=== PATIENT | male | born 1960 | race Caucasian/White ===

== ENCOUNTER 2017-04-16 19:20 | Inpatient (IN) ==
[2017-04-16] MEDS ORDERED: 0.9 % Sodium Chloride 1,000 ML IVC ONE (19:26)
[2017-04-16 20:15] LABS: Basophils # 0.1 K/mcL (0.0-0.2); Eosinophils # 0.3 K/mcL (0.0-0.6); Eosinophils % 2.6 %; Hematocrit 53.3 % (37.5-50.1); Hemoglobin 18.3 g/dL (12.9-16.9); Immature Granulocytes % 0.9 % (0-4); Lymphocytes % 24.3 %; Mean Corpuscular HGB Conc 34.3 g/dL (31.6-35.5); Mean Corpuscular Hemoglobin 32.7 pg (28.0-33.3); Mean Corpuscular Volume 95.2 fL (83.0-100.0); Mean Platelet Volume 11.4 fL (9.4-12.4); Monocytes # 0.8 K/mcL (0.0-1.3); Monocytes % 6.7 %; Platelet Count 176 K/mcL (140-400); Red Cell Distribution Width 12.4 % (11.5-14.5); Segmented Neutrophils % 64.5 %
[2017-04-16 20:24] LABS: INR 1.1; Prothrombin Time 12.4 Seconds (9.4-12.1)
[2017-04-16 20:26] LABS: BUN/Creatinine Ratio 13 (6-26); Blood Urea Nitrogen 12 mg/dL (8-26); Calcium 9.2 mg/dL (8.6-10.8); Carbon Dioxide 21 mEq/L (19-29); Chloride 109 mEq/L (98-109); Glucose 142 mg/dL (70-99); Magnesium 2.1 mg/dL (1.6-2.6); Osmolality,Calculated 296 (280-300); Potassium 4.5 mEq/L (3.5-4.5); Sodium 142 mEq/L (136-145); eGFR For African Americans > 60 (> 60); eGFR For Non-African Americans > 60 (> 60)
[2017-04-16 20:27] LABS: Activated Partial Thrombo Time 36.3 Seconds (26.0-36.0)
[2017-04-16 20:37] LABS: Bilirubin,Urine Negative (Negative); Blood,Urine Negative (Negative); Clarity,Urine Clear (Clear); Color,Urine Yellow (Yellow); Glucose,Urine (UA) Normal (Normal); Ketones,Urine Negative (Negative); Leukocyte Esterase,Urine Trace (Negative); Nitrite,Urine Negative (Negative); PH,Urine 5.5 pH Units (5.0-8.0); Protein,Urine Negative (Neg-Trace); Specific Gravity,Urine 1.025 (1.010-1.025); Urobilinogen,Urine Normal (Normal)
[2017-04-16 20:42] LABS: Amphetamine Screen,Urine Negative ng/mL (Cutoff=1000); Barbiturate Screen,Urine Negative ng/mL (Cutoff=200); Benzodiazepines Screen,Urine Negative ng/mL (Cutoff=200); Cannabinoid Screen,Urine Negative ng/mL (Cutoff = 50); Cocaine Screen,Urine Negative ng/mL (Cutoff= 300); Opiate Screen,Urine Negative ng/mL (Cutoff=300); Phencyclidine Screen,Urine Negative ng/mL (Cutoff=25)
[2017-04-16 20:47] LABS: Thyroid Stimulating Hormone 1.229 mcIU/mL (0.350-4.840)
[2017-04-16 20:55] LABS: RBC,Urine 0-3 per hpf (0-3)
--- NOTE | 2017-04-16 21:50 | Emergency Department Note ---
Disposition Clinical Impression: Atrial flutter Disposition: Admitted As Inpatient Condition: Good Time of Disposition: 22:01 Arrhythmia/Palpitations HPI - General Chief Complaint: ED Arrhythmia/Palpitations Stated Complaint: AFIB converted Time Seen by Provider: 04/16/17 19:25 Source: patient, EMS Mode of arrival: EMS Limitations: no limitations Nursing Notes Reviewed: Yes Vital Signs Reviewed: Yes - History of Present Illness HPI Narrative: Patient presenting as a transfer from the [place] urgent care with a flutter, spontaneously converted. No previous history. Patient presented to the urgent care for nausea, got diaphoretic while he was there. EKG showed atrial flutter. Was about to be given Cardizem when he spontaneously converted. he never felt anything like this before, but he feels fine now. - Related Data Allergies Allergy/AdvReac Type Severity Reaction Status Date / Time No Known Allergies Allergy Verified 04/16/17 20:23 All systems ED: reviewed and negative except as stated. Constitutional: Denies: fever Cardiovascular: Reports: palpitations. Denies: chest pain Respiratory: Reports: dyspnea Gastrointestinal: Reports: nausea Neurological: Denies: headache Past Medical History - Past Medical History Attestation: Yes The following information was validated with the patient. Source: patient Medical history: Reports: GERD Psychiatric history: Reports: anxiety - Social History Smoking Status: Current some day smoker Smokeless Tobacco Status: No Alcohol use: Reports: none Drug use: Reports: marijuana Physical Exam - General Limitations: no limitations General appearance: alert, in no apparent distress - Head Head exam: atraumatic, normocephalic, normal inspection - Eye Eye exam: Present: normal appearance, PERRL, EOMI, conjunctival injection - Neck Neck exam: Present: normal inspection, full ROM, trachea midline - Chest Chest inspection: Present: normal inspection, symmetric chest wall rise - Respiratory Respiratory exam: Present: normal lung sounds bilaterally - Cardiovascular Cardiovascular exam: Present: regular rate, normal rhythm, normal heart sounds - Abdominal Exam Abdominal exam: Present: soft, Non-Tender. Absent: tenderness, distention, guarding, rebound, rigidity - Extremities Exam Extremities exam: Present: normal inspection, full ROM. Absent: tenderness, pedal edema - Neurological Exam Neurological exam: Present: alert, oriented X3 - Psychiatric Psychiatric exam: Present: normal affect, normal mood - Skin Skin exam: Present: warm, dry, intact, normal color Course Course Narrative: Patient sent over from the [place] for A. fib versus atrial flutter, spontaneously converted. He presented with nausea and diaphoresis and self resolved. No symptoms since. No previous history. No history of hypertension, diabetes or vascular disease or CHF. Workup here is normal. Spoke with on-call isotope hydrologist, who did recommend admission. Since the [place] does not have cardiology. Although, his chads-vasc score is low Vital Signs Temperature 98.6 F 04/16/17 19:22 Pulse Rate 91 04/16/17 19:22 Respiratory Rate 16 04/16/17 19:22 Blood Pressure 117/102 04/16/17 19:22 O2 Sat by Pulse Oximetry 94 04/16/17 19:22 Temperature 98.6 F 04/16/17 19:22 Pulse Rate 81 04/16/17 21:24 Respiratory Rate 14 04/16/17 21:24 Blood Pressure 117/92 04/16/17 21:24 O2 Sat by Pulse Oximetry 92 04/16/17 21:24 Oxygen Delivery Oxygen Delivery Room Air Arrhythmia/Palpitations - Medical Records Medical records reviewed: Yes I reviewed the patient's medical records. - Lab Data Lab results reviewed: Yes I reviewed the patient's lab results. Result diagrams: 04/16/17 20:05 04/16/17 20:05 Lab Results 04/16/17 04/16/17 04/16/17 Range/Units 20:05 20:05 20:05 WBC 12.4 H (4.3-11.1) K/mcL RBC 5.60 H (4.19-5.50) M/mcL Hgb 18.3 H (12.9-16.9) g/dL Hct 53.3 H (37.5-50.1) % MCV 95.2 (83.0-100.0) fL MCH 32.7 (28.0-33.3) pg MCHC 34.3 (31.6-35.5) g/dL RDW 12.4 (11.5-14.5) % Plt Count 176 (140-400) K/mcL MPV 11.4 (9.4-12.4) fL Immature Gran % 0.9 (0-4) % Seg Neutrophils % 64.5 % Lymphocytes % 24.3 % Monocytes % 6.7 % Eosinophils % 2.6 % Basophils % 1.0 % Neutrophils # 8.0 (1.6-8.9) K/mcL Lymphocytes # 3.0 (0.6-4.6) K/mcL Monocytes # 0.8 (0.0-1.3) K/mcL Eosinophils # 0.3 (0.0-0.6) K/mcL Basophils # 0.1 (0.0-0.2) K/mcL PT 12.4 H (9.4-12.1) Seconds INR 1.1 APTT 36.3 H (26.0-36.0) Seconds Sodium 142 (136-145) mEq/L Potassium 4.5 (3.5-4.5) mEq/L Chloride 109 (98-109) mEq/L Carbon Dioxide 21 (19-29) mEq/L BUN 12 (8-26) mg/dL Creatinine 0.94 (0.72-1.25) mg/dL Est GFR ( Amer) > 60 (> 60) Est GFR (Non-Af Amer) > 60 (> 60) BUN/Creatinine Ratio 13 (6-26) Glucose 142 H (70-99) mg/dL Calculated Osmolality 296 (280-300) Calcium 9.2 (8.6-10.8) mg/dL Magnesium 2.1 (1.6-2.6) mg/dL Troponin I (0-0.03) ng/mL TSH 1.229 (0.350-4.840) mcIU/mL Urine Color (Yellow) Urine Clarity (Clear) Urine pH (5.0-8.0) pH Units Ur Specific [place] (1.010-1.025) Urine Protein (Neg-Trace) mg/dL Urine Glucose (UA) (Normal) mg/dL Urine Ketones (Negative) mg/dL Urine Blood (Negative) Urine Nitrite (Negative) Urine Bilirubin (Negative) Urine Urobilinogen (Normal) mg/dL Ur Leukocyte Esterase (Negative) Urine Microscopic RBC (0-3) per hpf Ur Culture Indicated? (NO) Urine Opiates Screen (Cfdbdl=263) ng/mL Ur Barbiturates Screen (Carnhb=490) ng/mL Ur Phencyclidine Scrn (Cutoff=25) ng/mL Ur Amphetamines Screen (Carazk=1641) ng/mL U Benzodiazepines Scrn (Axgkzs=874) ng/mL Urine Cocaine Screen (Cutoff= 300) ng/mL U Marijuana (THC) Screen (Cutoff = 50) ng/mL Ethyl Alcohol (0-10) mg/dL 04/16/17 04/16/17 04/16/17 Range/Units 20:05 20:05 20:28 WBC (4.3-11.1) K/mcL RBC (4.19-5.50) M/mcL Hgb (12.9-16.9) g/dL Hct (37.5-50.1) % MCV (83.0-100.0) fL MCH (28.0-33.3) pg MCHC (31.6-35.5) g/dL RDW (11.5-14.5) % Plt Count (140-400) K/mcL MPV (9.4-12.4) fL Immature Gran % (0-4) % Seg Neutrophils % % Lymphocytes % % Monocytes % % Eosinophils % % Basophils % % Neutrophils # (1.6-8.9) K/mcL Lymphocytes # (0.6-4.6) K/mcL Monocytes # (0.0-1.3) K/mcL Eosinophils # (0.0-0.6) K/mcL Basophils # (0.0-0.2) K/mcL PT (9.4-12.1) Seconds INR APTT (26.0-36.0) Seconds Sodium (136-145) mEq/L Potassium (3.5-4.5) mEq/L Chloride (98-109) mEq/L Carbon Dioxide (19-29) mEq/L BUN (8-26) mg/dL Creatinine (0.72-1.25) mg/dL Est GFR ( Amer) (> 60) Est GFR (Non-Af Amer) (> 60) BUN/Creatinine Ratio (6-26) Glucose (70-99) mg/dL Calculated Osmolality (280-300) Calcium (8.6-10.8) mg/dL Magnesium (1.6-2.6) mg/dL Troponin I 0.00 (0-0.03) ng/mL TSH (0.350-4.840) mcIU/mL Urine Color Yellow (Yellow) Urine Clarity Clear (Clear) Urine pH 5.5 (5.0-8.0) pH Units Ur Specific [place] 1.025 (1.010-1.025) Urine Protein Negative (Neg-Trace) mg/dL Urine Glucose (UA) Normal (Normal) mg/dL Urine Ketones Negative (Negative) mg/dL Urine Blood Negative (Negative) Urine Nitrite Negative (Negative) Urine Bilirubin Negative (Negative) Urine Urobilinogen Normal (Normal) mg/dL Ur Leukocyte Esterase Trace H (Negative) Urine Microscopic RBC 0-3 (0-3) per hpf Ur Culture Indicated? YES A (NO) Urine Opiates Screen (Mkjfde=758) ng/mL Ur Barbiturates Screen (Ushilz=509) ng/mL Ur Phencyclidine Scrn (Cutoff=25) ng/mL Ur Amphetamines Screen (Fonymj=4257) ng/mL U Benzodiazepines Scrn (Tjxbhw=547) ng/mL Urine Cocaine Screen (Cutoff= 300) ng/mL U Marijuana (THC) Screen (Cutoff = 50) ng/mL Ethyl Alcohol < 10 (0-10) mg/dL 04/16/ Range/Units 20:28 WBC (4.3-11.1) K/mcL RBC (4.19-5.50) M/mcL Hgb (12.9-16.9) g/dL Hct (37.5-50.1) % MCV (83.0-100.0) fL MCH (28.0-33.3) pg MCHC (31.6-35.5) g/dL RDW (11.5-14.5) % Plt Count (140-400) K/mcL MPV (9.4-12.4) fL Immature Gran % (0-4) % Seg Neutrophils % % Lymphocytes % % Monocytes % % Eosinophils % % Basophils % % Neutrophils # (1.6-8.9) K/mcL Lymphocytes # (0.6-4.6) K/mcL Monocytes # (0.0-1.3) K/mcL Eosinophils # (0.0-0.6) K/mcL Basophils # (0.0-0.2) K/mcL PT (9.4-12.1) Seconds INR APTT (26.0-36.0) Seconds Sodium (136-145) mEq/L Potassium (3.5-4.5) mEq/L Chloride (98-109) mEq/L Carbon Dioxide (19-29) mEq/L BUN (8-26) mg/dL Creatinine (0.72-1.25) mg/dL Est GFR ( Amer) (> 60) Est GFR (Non-Af Amer) (> 60) BUN/Creatinine Ratio (6-26) Glucose (70-99) mg/dL Calculated Osmolality (280-300) Calcium (8.6-10.8) mg/dL Magnesium (1.6-2.6) mg/dL Troponin I (0-0.03) ng/mL TSH (0.350-4.840) mcIU/mL Urine Color (Yellow) Urine Clarity (Clear) Urine pH (5.0-8.0) pH Units Ur Specific [place] (1.010-1.025) Urine Protein (Neg-Trace) mg/dL Urine Glucose (UA) (Normal) mg/dL Urine Ketones (Negative) mg/dL Urine Blood (Negative) Urine Nitrite (Negative) Urine Bilirubin (Negative) Urine Urobilinogen (Normal) mg/dL Ur Leukocyte Esterase (Negative) Urine Microscopic RBC (0-3) per hpf Ur Culture Indicated? (NO) Urine Opiates Screen Negative (Qqwueo=414) ng/mL Ur Barbiturates Screen Negative (Ovqeeq=222) ng/mL Ur Phencyclidine Scrn Negative (Cutoff=25) ng/mL Ur Amphetamines Screen Negative (Wxglke=0631) ng/mL U Benzodiazepines Scrn Negative (Efpyrk=386) ng/mL Urine Cocaine Screen Negative (Cutoff= 300) ng/mL U Marijuana (THC) Screen Negative (Cutoff = 50) ng/mL Ethyl Alcohol (0-10) mg/dL - Radiology Data Radiology results reviewed: Yes I reviewed the patient's radiology results. Chest X-Ray 04/16/17 19:27 IMPRESSION: No acute process. D/ / Moris Chan MD / Moris Chan MD Interpreting Provider: Moris Chan MD - EKG Data EKG attestation: Yes I reviewed and interpreted this EKG. EKG results narrative: Sinus rhythm, rate 82, TX interval 146, QRS 93, QTc 389, left axis deviation, no acute ischemic changes Initial EKG showed a rate of 153 with atrial flutter versus 2-1. S.B.A.R. - S.Elsa.Martinez Situation: Demographics, MOA Background: Presenting Complaint, Relevant PMH, Meds, & Allergies Assessment: Vital Signs, Course and respsone to treatment, Exam Concerns, Patient/Family Expectation, Pertinant Lab Results, Outstanding Labs Recommendation: Barrier(s) to disposition, Recommendation based on pending studies, treatments, or consults Radha Report Given to: Dr. Rishabh Garcia Repor Time: 22:01 Attestation Statement - Attestation Attestation: I examined this patient and my medical decision-making was reviewed with the Resident Physician, Dr. Morales. I agree with the documented findings, disposition and treatment plan as described except to the extent set forth below. Patient is 57-year-old white male who is transferred from the [facility] for evaluation of atrial flutter which spontaneously converted prior to arrival to the emergency department. Patient states he had just eaten and started to feel short of breath and nauseated and got hot and sweaty and went to the [place] clinic for evaluation of his symptoms. Patient was found to be in atrial flutter with heart rate in the 150s and 160s and this was captured by EKG which was sent with the patient. He had no prior history of A. fib or atrial flutter. No prior history of CHF and coronary artery disease or IA. Patient was about to receive Cardizem prior to transport and he spontaneously converted back to normal sinus rhythm. At the time that this occurred patient's symptoms resolved. Patient has been asymptomatic since that time. Patient is resting comfortably on arrival to the emergency department with stable vital signs and denies any chest pain pressure or heaviness, no current shortness of breath and diaphoresis no nausea vomiting no abdominal pain or flank pain I agree with patient's physical exam findings as documented. EKG here shows normal sinus rhythm with no acute ischemic changes. Chest x-ray is unremarkable. Patient's lab evaluation including alcohol level and urine drug screen is unremarkable. We discussed the case with isotope hydrologist child welfare consultant who is Dr. Villagomez in regards to whether to bring the patient in for further evaluation or schedule as an outpatient. He was concerned that his workup would be delayed due to having to wait for the patient have approval through the [facility] for a lot of this testing and they do not have cardiology they are so he recommended admission for further evaluation and management. Patient was accepted by the hospitalist service with a consult to cardiology placed in the ED.
[2017-04-16] MEDS ORDERED: 0.9 % Sodium Chloride 1,000 ML IVC SCH (23:45)
[2017-04-16] MEDS ORDERED: Naloxone 0.4 MG/ML INJ IVP PRN (23:54)
[2017-04-16] MEDS ORDERED: cloNIDine HCl 0.1 MG TABLET PO PRN (23:58)
[2017-04-16] MEDS ORDERED: Baclofen 10 MG TABLET PO PRN (23:58)
[2017-04-16] MEDS ORDERED: hydrOXYzine pamoate 25 MG CAPSULE PO PRN (23:58)
[2017-04-16] MEDS ORDERED: NALOXONE HCL 4 MG NS PRN (23:58)
[2017-04-17] MEDS: *HR* Heparin 5,000 UNIT/ML VIAL SQ SCH ×2 (00:27→09:09)
--- NOTE | 2017-04-17 01:30 | Internal Med History&Physical ---
Date of Encounter: 04/17/17 Time of Encounter: 23:00 Assessment and Plan (1) Atrial flutter Current visit: Yes Status: Acute Patient presented to the hospital with the acute onset of atrial flutter. Heart rate was in the 150s to 160s. -Patient has no known cardiac history, and has chads-vasc score of 0. I will signs have been stable since admission. Patient's heart rate is 81. -Obtain echocardiogram. -Start on aspirin 325 mg daily. -Obtain serial troponins, TSH, free T4, d-dimer. -Telemetry. Monitor vital signs closely. -Consult to cardiology Qualifiers: Qualified Code(s): I48.92 - Unspecified atrial flutter (2) DVT prophylaxis Current visit: Yes Status: Acute Heparin 5000 subcutaneous 8 hours. Internal Medicine - H&P: HPI Chief complaint: Atrial flutter Admitted From: Hospital to Hospital Transfer History of present illness: Mr. Mckenzie is a 57 year old male who was transferred from the [facility] for the evaluation of atrial flutter. Patient states that he had just eaten and started feel short of breath, became nauseated, and became sweaty and went to the [place] clinic for evaluation. At the [place] clinic, EKG was performed, revealing atrial flutter with a heart rate in the 150s and 160s. Patient has had no prior history of atrial fibrillation or atrial flutter. He has no known history of congestive heart failure or coronary artery disease. When he was at the clinic, patient was about to receive Cardizem prior to transport. It was at this time and he spontaneously converted back to normal sinus rhythm. Patient's symptoms are completely resolved at this time. Vital signs are within normal limits since admission. He has been asymptomatic since his arrival to the hospital. He denies having any chest pain, palpitations, diaphoresis, nausea, vomiting, fever, chills, or shortness of breath. Patient denies ever having anything like this before. At time of examination, patient is in no apparent distress and has no complaints. Past Med Surg Social Fam HX - Past Medical History Medical history: GERD, hyperlipidemia Psychiatric history: anxiety - Past Surgical History Surgical History: herniorrhaphy - Social History Smoking Status: Current some day smoker Packs per day: 1/2 Smokeless Tobacco Status: No Alcohol use: none Drug use: none - Family History Mother Living Status: Still Living Hx Family Cancer: Yes Internal Medicine - H&P: Meds Atomoxetine HCl [Strattera] 80 mg PO DAILY 04/16/17 [History] Atorvastatin [Lipitor] 10 mg PO HS 04/16/17 [History] Baclofen [Lioresal] 10 mg PO TID PRN 04/16/17 [History] Ergocalciferol (VITAMIN D2) [Vitamin D] 800 unit PO DAILY 04/16/17 [History] Fluticasone Propionate Nasal [Flonase] 50 mcg NS HS 04/16/17 [History] Gabapentin [Neurontin] 800 mg PO 0700,1400,2100 04/16/17 [History] Hydrocortisone 1% CREAM [Cortaid] 1 appl TP TID PRN 04/16/17 [History] Montelukast [Singulair] 10 mg PO DAILY 04/16/17 [History] Multivitamin [One Daily Multivitamin] 1 each PO DAILY 04/16/17 [History] Naloxone HCl [Narcan] 4 mg NS AD PRN 04/16/17 [History] Naltrexone HCl [Revia] 50 mg PO DAILY 04/16/17 [History] Omeprazole [PriLOSEC] 20 mg PO DAILY PRN 04/16/17 [History] Propylene Glycol/Peg 400 [Systane 0.3-0.4% Eye Drops] 1 drop BOTH EYES QID 04/16 [History] cloNIDine HCl [CloNIDine HCl] 0.1 mg PO Q4H PRN 04/16/17 [History] hydrOXYzine HCl [Hydroxyzine HCl] 25 mg PO HS PRN 04/16/17 [History] 3 Allergy/AdvReac Type Severity Reaction Status Date / Time No Known Allergies Allergy Verified 04/16/17 20:23 All Systems PM: A 10-system review of systems was performed and is negative for pertinent findings except as documented above in the HPI. - Constitutional Constitutional: no chills, no fever(s), no night sweats - EENT Eyes: no change in vision - Cardiovascular Cardiovascular ROS IM: no chest pain, no diaphoresis, no dyspnea, no lightheadedness, no palpitations, no syncope - Respiratory Respiratory: no cough, no dyspnea, no wheezing, no excessive phlegm production - Gastrointestinal Gastrointestinal: no abdominal pain, no diarrhea, no hematemesis, no hematochezia, no melena, no nausea, no vomiting - Neurological Neurological ROS: no confusion, no convulsions, no focal weakness, no numbness, no tingling, no tremor(s) - Hematologic/Lymphatic Hematologic/Lymphatic: no easy bruising - Constitutional Vitals: Temp Pulse Resp BP Pulse Ox 98.3 F 73 16 116/80 94 04/16/17 23:03 04/16/17 23:03 04/16/17 23:03 04/16/17 23:03 04/16/17 23:03 General appearance: Present: pleasant, no acute distress, answers questions appropriately - Head Head exam: Present: atraumatic, normocephalic - Neck Neck exam general surgery: Present: supple, trachea midline. Absent: lymphadenopathy - Respiratory Respiratory exam: Present: CTAB. Absent: accessory muscle use, rales, rhonchi, wheezes - Cardiovascular Cardiovascular exam: Present: RRR, +S1, +S2. Absent: diastolic murmur, gallop, rubs, systolic murmur - GI/Abdominal GI/Abdominal exam: Present: normal bowel sounds, soft, no peritoneal signs. Absent: distended, tenderness - Extremities Exam Extremities exam: Present: warm, radial pulses palpable and symmetrical. Absent : calf tenderness, cyanotic, pedal edema - Skin Skin exam: Present: dry, intact Internal Med - H&P Results - Labs CBC & Chem 7: 04/16/17 20:05 04/16/17 20:05
--- NOTE | 2017-04-17 01:36 | Event Note ---
Date of Encounter: 04/17/17 Time of Encounter: 01:35 Patient seen and examined with senior medical technologist. Nuance of atrial flutter. Currently normal sinus rhythm. Chadvasc score is 0. We will get echocardiogram. Cardiology consultation. We will keep him on aspirin 325 mg daily for now.
[2017-04-17 01:50] LABS: Basophils # 0.1 K/mcL (0.0-0.2); Basophils % 1.1 %; Eosinophils # 0.3 K/mcL (0.0-0.6); Hematocrit 48.4 % (37.5-50.1); Immature Granulocytes % 0.9 % (0-4); Immature Platelets 6.6 % (1.1-6.1); Lymphocytes # 3.2 K/mcL (0.6-4.6); Lymphocytes % 33.2 %; Mean Corpuscular HGB Conc 34.3 g/dL (31.6-35.5); Mean Corpuscular Hemoglobin 32.7 pg (28.0-33.3); Mean Corpuscular Volume 95.5 fL (83.0-100.0); Mean Platelet Volume 11.4 fL (9.4-12.4); Monocytes # 0.9 K/mcL (0.0-1.3); Neutrophils # 5.2 K/mcL (1.6-8.9); Platelet Count 153 K/mcL (140-400); Red Blood Count 5.07 M/mcL (4.19-5.50); Red Cell Distribution Width 12.6 % (11.5-14.5); Segmented Neutrophils % 52.8 %
[2017-04-17 01:53] LABS: Hemoglobin 16.6 g/dL (12.9-16.9)
[2017-04-17 02:04] LABS: BUN/Creatinine Ratio 14 (6-26); Blood Urea Nitrogen 13 mg/dL (8-26); Calcium 8.5 mg/dL (8.6-10.8); Carbon Dioxide 23 mEq/L (19-29); Chloride 111 mEq/L (98-109); Chol/HDL Ratio 5.3 (0-4.9); Cholesterol 148 mg/dL (< 200); Glucose 110 mg/dL (70-99); HDL Cholesterol 28 mg/dL (40-59); LDL Cholesterol,Calculated 95 mg/dL (0-99); Magnesium 1.9 mg/dL (1.6-2.6); Osmolality,Calculated 295 (280-300); Phosphorous 4.1 mg/dL (2.3-4.7); Potassium 4.1 mEq/L (3.5-4.5); Sodium 142 mEq/L (136-145); Triglycerides 123 mg/dL (< 150); eGFR For African Americans > 60 (> 60); eGFR For Non-African Americans > 60 (> 60)
[2017-04-17 02:52] LABS: Thyroid Stimulating Hormone 1.374 mcIU/mL (0.350-4.840)
[2017-04-17] MEDS: Gabapentin 400 MG CAPSULE PO SCH ×2 (06:36→13:09)
[2017-04-17] MEDS ORDERED: Multivit/Ca/Min/Fe/FA 1 TAB TABLET PO SCH (09:00)
[2017-04-17] MEDS ORDERED: Aspirin 325 MG TABLET PO SCH (09:00)
[2017-04-17] MEDS ORDERED: NALTREXONE HCL 50 MG PO SCH (09:00)
[2017-04-17] MEDS ORDERED: Cholecalciferol (D-3) 1,000 UNIT TABLET PO SCH (09:00)
[2017-04-17] MEDS: Artificial Tears SOLN 15 ML BOTTLE BOTH EYES SCH ×2 (09:12→13:07)
[2017-04-17] MEDS ORDERED: Diltiazem CD (24hr) 120 MG CAPSULE PO SCH (10:45)
--- NOTE | 2017-04-17 10:48 | Cardiology Consult Note ---
Date of Encounter: 04/17/17 Time of Encounter: 09:30 Assessment and Plan (1) Atrial flutter Current Visit: Yes Status: Acute Per cardiology: -Admitted with new onset [facility] flutter at [facility], per reports converted to SR without intervention. -Patient is inpatient at [facility] for [facility] abuse. -ECG from [facility] with atrial flutter, HR 153. -NO atrial flutter noted per telemetry. -Denies current symptoms. -Troponins negative x3. -TSH, K and Mg within normal limits. -[id number] score 0. No anticoagulation or asa recommended. -Echo pending. -Will start cardizem CD 120mg daily. -Will schedule follow up appointment with KRUNAL Pollack. -If no significant findings per echocardiogram, anticipate cardiology sign off. Qualifiers: Atrial flutter type: unspecified Qualified Code(s): I48.92 - Unspecified atrial flutter Discussion w patient/family: The assessment and plan as outlined above was discussed with the patient who expressed understanding and agreement. All questions were answered. Thank you for involving us in the care of your patient. Please call with any questions. Discussed and reviewed with . History of Present Illness Consult date: 04/17/17 Requesting physician: Reji Wolf Consult reason: new onset atrial flutter Chief complaint: dizziness, diaphoresis History of present illness: Mr. Mckenzie is a 57 year old male with a relevant past medical history of anxiety , OCD, COPD, GERD, ETOH abuse, polysubstance abuse. Patient currently resides at the [facility] for inpatient substance abuse treatment. Patient is also homeless and states the [facility] is attempting to set up housing for him when he is discharged from inpatient substance abuse center. Patient states yesterday, he was walking back to his room when he became lightheaded and was sweating and nauseated. Patient states he went and laid in his bed and staff took his vital signs. They were unable to obtain HR so they transferred him to [facility] urgent care. At urgent care, ECG was done and noted to have atrial flutter with RVR. According to records, patient converted to sinus rhythm without intervention. Patient was transferred to [facility]. Patient denies palpitations or fluttering. Patient denies current dizziness, lightheadedness, nausea, or diaphoresis. Patient states he feels like he is ready to return to [facility]. Past Med Surg Social Fam HX - Past Medical History Attestation: Yes The following information was validated with the patient. Source: patient Medical history: GERD, hyperlipidemia Psychiatric history: anxiety - Past Surgical History Surgical History: herniorrhaphy - Social History Smoking Status: Current some day smoker Packs per day: 1/2 Smokeless Tobacco Status: No Alcohol use: none Drug use: none - Family History Mother Living Status: Still Living Hx Family Cancer: Yes Medications and Allergies Atomoxetine HCl [Strattera] 80 mg PO DAILY 04/16/17 [History] Atorvastatin [Lipitor] 10 mg PO HS 04/16/17 [History] Baclofen [Lioresal] 10 mg PO TID PRN 04/16/17 [History] Ergocalciferol (VITAMIN D2) [Vitamin D] 800 unit PO DAILY 04/16/17 [History] Fluticasone Propionate Nasal [Flonase] 50 mcg NS HS 04/16/17 [History] Gabapentin [Neurontin] 800 mg PO 0700,1400,2100 04/16/17 [History] Hydrocortisone 1% CREAM [Cortaid] 1 appl TP TID PRN 04/16/17 [History] Montelukast [Singulair] 10 mg PO DAILY 04/16/17 [History] Multivitamin [One Daily Multivitamin] 1 each PO DAILY 04/16/17 [History] Naloxone HCl [Narcan] 4 mg NS AD PRN 04/16/17 [History] Naltrexone HCl [Revia] 50 mg PO DAILY 04/16/17 [History] Omeprazole [PriLOSEC] 20 mg PO DAILY PRN 04/16/17 [History] Propylene Glycol/Peg 400 [Systane 0.3-0.4% Eye Drops] 1 drop BOTH EYES QID 04/16 [History] cloNIDine HCl [CloNIDine HCl] 0.1 mg PO Q4H PRN 04/16/17 [History] hydrOXYzine HCl [Hydroxyzine HCl] 25 mg PO HS PRN 04/16/17 [History] 3 Allergy/AdvReac Type Severity Reaction Status Date / Time No Known Allergies Allergy Verified 04/16/17 20:23 All Systems Review: A 10-system review of systems was performed and is negative for pertinent findings except as documented above in the HPI. - Cardiovascular Cardiovascular: as per HPI, diaphoresis, lightheadedness - Gastrointestinal Gastrointestinal: nausea Physical Examination Vital Signs, Last 4 Hours Temp Pulse Resp BP Pulse Ox 04/17/17 07:32 98.2 F 73 16 113/74 95 General: Conversant, No Apparent Distress HEENT: Atraumatic, Normocephaly, Mucus Membranes Moist Neck: No JVD, Normal carotid pulses Cardiac: Reg Rate and Rhythm, Normal S1 and S2, No Murmur Lungs: Normal Breath Sounds, No Wheeze, Rales, Rhonchi Neuro: Alert and responsive, No focal deficits noted Abdomen: Soft, Non-Tender Skin: No rashes noted on visualized skin Musculoskeletal: No Chest Wall Tenderness Extremities: No Clubbing, No Cyanosis, No Edema, Normal Pulses Results 04/17/17 01:44 04/17/17 01:44 Lab Results Impressions Chest X-Ray 04/16/17 19:27 IMPRESSION: No acute process. D/ / Moris Chan MD / Moris Chan MD Interpreting Provider: Moris Chan MD Active Medications Artificial Tears (Akwa Tears) 1 drop BOTH EYES QID [facility] Stop: 10/17/17 09:01 Last Admin: 04/17/17 09:12 Dose: Not Given Aspirin (Aspirin) 325 mg PO DAILY [facility] Stop: 10/17/17 09:01 Last Admin: 04/17/17 09:09 Dose: 325 mg Atomoxetine HCl (Strattera) 80 mg PO DAILY [facility] Stop: 10/17/17 09:01 Last Admin: 04/17/17 09:09 Dose: 80 mg Atorvastatin Calcium (Lipitor) 10 mg PO HS [facility] Stop: 10/17/17 21:01 Baclofen (Lioresal) 10 mg PO TID PRN PRN Reason: Muscle Pain/Cravings Stop: 10/16/17 23:59 Last Admin: 04/17/17 06:36 Dose: 10 mg Clonidine HCl (Clonidine Hcl) 0.1 mg PO Q4H PRN PRN Reason: Systolic BP > 160 Stop: 10/16/17 23:59 Diltiazem HCl (Cardizem Cd) 120 mg PO DAILY [facility] Stop: 10/17/17 10:46 Fluticasone Propionate (Flonase) 50 mcg NS HS [facility] PRN Reason: Protocol Stop: 10/17/17 21:01 Gabapentin (Neurontin) 800 mg PO 0700,1400,2100 [facility] Stop: 10/17/17 07:01 Last Admin: 04/17/17 06:36 Dose: 800 mg Heparin Sodium (Porcine) (Heparin) 5,000 unit SQ Q8HR [facility] Stop: 10/17/17 00:01 Last Admin: 04/17/17 09:09 Dose: 5,000 unit Hydrocortisone (Cortaid) 1 appl TP TID PRN; Protocol PRN Reason: Dermatitis Stop: 10/16/17 23:59 Hydroxyzine Pamoate (Hydroxyzine Pamoate) 25 mg PO HS PRN PRN Reason: Sleep/Anxiety Sodium Chloride (0.9 % Sodium Chloride) 1,000 mls @ 60 mls/hr IVC .[id number] [facility] Stop: 10/16/17 23:46 Last Admin: 04/17/17 00:23 Dose: 60 mls/hr Montelukast Sodium (Singulair) 10 mg PO DAILY [facility] Stop: 10/17/17 09:01 Last Admin: 04/17/17 09:09 Dose: 10 mg Multivitamins/Calcium (Thera M Plus) 1 tab PO DAILY [facility] Stop: 10/17/17 09:01 Last Admin: 04/17/17 09:09 Dose: 1 tab Naloxone HCl (Narcan) 0.4 mg IVP Q2MIN PRN PRN Reason: Opioid Reversal Stop: 10/16/17 23:55 Omeprazole (Prilosec) 20 mg PO DAILY PRN; Protocol PRN Reason: Heartburn Stop: 10/16/17 23:59 Pharmacy Profile Note (Patient Taking Own Medication) 1 each PO DAILY [facility] Stop: 10/17/17 09:01 Last Admin: 04/17/17 09:12 Dose: Not Given Vitamin D (Vitamin D) 1,000 unit PO DAILY [facility] Stop: 10/17/17 09:01 Last Admin: 04/17/17 09:09 Dose: 1,000 unit Laboratory Tests 04/16/17 04/16/17 04/17/17 20:05 20:05 01:44 Hgb Potassium Creatinine Magnesium Troponin I 0.00 0.00 TSH 1.229 Free T4 04/17/17 04/17/17 04/17/17 01:44 01:44 01:44 Hgb 16.6 D Potassium 4.1 Creatinine 0.95 Magnesium 1.9 Troponin I TSH Free T4 0.74 04/17/17 07:54 Hgb Potassium Creatinine Magnesium Troponin I 0.01 TSH Free T4 - Imaging and Cardiology Chest Xray: report reviewed Echo: pending - EKG Interpretation EKG results cardiology: personally reviewed (ECG at [place] with SR, HR 82.), other (Telemetry reviewed with average HR 72, sinus rhythm. PVCs and PACs noted. NO episodes of atrial fibrillation/flutter noted.) Consult Discharge Plan - Plan Referrals: [facility] [Primary Care Provider] -
--- NOTE | 2017-04-17 11:15 | Discharge Summary ---
<Alexi Mosquera - Last Filed: 04/17/17 13:16> Date of Encounter: 04/17/17 Time of Encounter: 11:14 - Discharge Diagnosis (1) Atrial flutter Priority: Primary Status: Acute Qualifiers: Atrial flutter type: unspecified Qualified Code(s): I48.92 - Unspecified atrial flutter (2) History of alcoholism Priority: Secondary Status: Acute (3) DVT prophylaxis Priority: Secondary Status: Acute (4) Depression Priority: Secondary Status: Acute Qualifiers: Depression Type: unspecified Qualified Code(s): F32.9 - Major depressive disorder, single episode, unspecified - Discharge Medications Prescriptions: Diltiazem CD (24hr) [Cardizem CD] 120 mg PO DAILY #30 cap.er.24h Home Medications: Atomoxetine HCl [Strattera] 80 mg PO DAILY 04/16/17 [History] Atorvastatin [Lipitor] 10 mg PO HS 04/16/17 [History] Baclofen [Lioresal] 10 mg PO TID PRN 04/16/17 [History] Ergocalciferol (VITAMIN D2) [Vitamin D] 800 unit PO DAILY 04/16/17 [History] Fluticasone Propionate Nasal [Flonase] 50 mcg NS HS 04/16/17 [History] Gabapentin [Neurontin] 800 mg PO 0700,1400,2100 04/16/17 [History] Hydrocortisone 1% CREAM [Cortaid] 1 appl TP TID PRN 04/16/17 [History] Montelukast [Singulair] 10 mg PO DAILY 04/16/17 [History] Multivitamin [One Daily Multivitamin] 1 each PO DAILY 04/16/17 [History] Naltrexone HCl [Revia] 50 mg PO DAILY 04/16/17 [History] Omeprazole [PriLOSEC] 20 mg PO DAILY PRN 04/16/17 [History] Propylene Glycol/Peg 400 [Systane 0.3-0.4% Eye Drops] 1 drop BOTH EYES QID 04/16 [History] cloNIDine HCl [CloNIDine HCl] 0.1 mg PO Q4H PRN 04/16/17 [History] hydrOXYzine HCl [Hydroxyzine HCl] 25 mg PO HS PRN 04/16/17 [History] Diltiazem CD (24hr) [Cardizem CD] 120 mg PO DAILY #30 cap.er.24h 04/17/17 [Rx] Allergies/Adverse Reactions: 3 Allergy/AdvReac Type Severity Reaction Status Date / Time No Known Allergies Allergy Verified 04/16/17 20:23 Procedures/tests Complete & Pending: Procedures Performed prior 72 hours Category Date Time Status EV echocardiogram Routine Y 04/17/17 00:01 Ordered Date of admission: 04/16/17 22:07 Primary care physician: PCP [facility] Consults: 04/16/17 23:56 Consult to Roving Machine Operator [CONS] Routine Reason for SW Consult: possibly homeless 04/17/17 00:01 Consult to Cardiology [CONS] Routine Comment: Consulting Provider: Cardiology Nancy Reason for Consult: new onset atrial flutter Call Completed: No Discharging clinician: Alexi Mosquera Anticipated date of discharge: 04/17/17 - Patient Status Disposition: Transfer Inpatient Rehab Fac Condition: Good Functional capacity at discharge: independent ambulation Overall status at discharge: patient is progressing back to baseline - Discharge Instructions Instructions: Diltiazem (By mouth), Atrial Flutter (DC), Depression (DC) Follow Up With: Isaac Alas MD [Partnered Physician] - (office will call you with a follow up appt. ) [facility],PCP [Primary Care Provider] - Additional Instructions: please go back to inpatient rehab at the [facility] take our newly prescribed cardizem as directed. follow up with primary care doctor within one week of discharge follow up outpatient with cardiology return to the emergency department immediately if you develop palpitations, fever, chills, chest pain, or shortness of breath. - Diet and Activity Activity: increase activity as tolerated Diet: low fat, low cholesterol Hospital course: Mr. Mckenzie is a 57 year old male with PMHx of depression, GERD, HLD, extensive history of alcoholism. Patient arrived to the [facility] on 04/16/17 with chief complaint of palpitations. He was sent [facility] for further work up. Before arriving to [facility], he spontaneously converted back to sinus rhythm while he was still at the [facility]. Patient states he has a 30+ year history of alcoholism. He is homeless as well. He is currently in rehab at the [facility]. CXR showed no acute abnormalities. Cardiology was consulted for further recommendations. His telemetry was reviewed by cardiology and there were no further episodes of atrial flutter noted. troponins x3 were negative. TSH, K, Mg were within normal limits. His CHADS2/VASC score was 0 so no anticoagulation was warranted. He was started on cardizem CD 120 daily by cardiology. Echo showed LVEF 60-65%, normal LV chamber size and function, mild concentric LVH, indeterminate diastolic funciotn, normal RV structure and function, no evidence of pulmonary HTN, no valvular dysfunction. He will follow up with in home baby sitter outpatient. patient had no further episodes of atrial flutter, and he was discharged back to [facility] inpatient rehab in stable condition. recommend outpatient sleep study to rule out ROSETTA as a possible cause. Plan: recommend outpatient sleep study to rule out ROSETTA as a possible cause of Aflutter. please go back to inpatient rehab at the [facility] take our newly prescribed cardizem as directed. follow up with primary care doctor within one week of discharge follow up outpatient with cardiology return to the emergency department immediately if you develop palpitations, fever, chills, chest pain, or shortness of breath. - Time Spent with Patient Total time spent providing and/or coordinating discharge services: - Constitutional Vitals: Temp Pulse Resp BP Pulse Ox 98.2 F 73 16 113/74 95 04/17/17 07:32 04/17/17 07:32 04/17/17 07:32 04/17/17 07:32 04/17/17 07:32 General appearance: Present: A&O X 3, pleasant, no acute distress, answers questions appropriately - Head Head exam: Present: atraumatic, normocephalic - Neck Neck exam general surgery: Present: supple, trachea midline - Respiratory Respiratory exam: Present: CTAB - Cardiovascular Cardiovascular exam: Present: RRR, +S1, +S2 - GI/Abdominal GI/Abdominal exam: Present: distended, hypoactive bowel sounds, soft, no peritoneal signs. Absent: tenderness - Extremities Exam Extremities exam: Absent: cyanotic, pedal edema - Neurological Exam Neurological exam: Present: alert, oriented X3, no focal deficits - Psychiatric Psychiatric exam: Present: normal affect, normal mood <Caio Borja - Last Filed: 04/17/17 14:07> Date of Encounter: 04/17/17 Procedures/tests Complete & Pending: Procedures Performed prior 72 hours Category Date Time Status EV echocardiogram Routine Y 04/17/17 00:01 Completed Date of admission: 04/16/17 22:07 Primary care physician: [facility] Consults: 04/16/17 23:56 Consult to Roving Machine Operator [CONS] Routine Reason for SW Consult: possibly homeless 04/17/17 00:01 Consult to Cardiology [CONS] Routine Comment: Consulting Provider: Cardiology Nancy Reason for Consult: new onset atrial flutter Call Completed: No Hospital course: Mr. Mckenzie is a 57 year old male - Time Spent with Patient Total time spent providing and/or coordinating discharge services: - Constitutional Vitals: Temp Pulse Resp BP Pulse Ox 97.9 F 67 16 119/77 94 04/17/17 11:56 04/17/17 11:56 04/17/17 11:56 04/17/17 11:56 04/17/17 11:56 - Attending Attestation New onset atrial flutter, history of alcohol use Continue Cardizem per cardiology recommendations Transfer back to [facility] rehabilitation Time spent on this discharge: 40 minutes I examined this patient and my medical decision-making was reviewed with the Resident Physician. I agree with the documented findings, disposition and treatment plan as described except to the extent set forth below.
[2017-04-17 11:57] VITALS: BP 119/77
--- NOTE | 2017-04-17 15:36 | Electrocardiograph Report ---
[address] [place], [place] [address] Test Date: 2017-04-16 Pat Name: Isaac Mckenzie Department: 103 Room: 3B Gender: M Debt Counselor: PEMA : 1960 Requested By: Luke Morales Order Number: [id number] Reading MD: Isaac Alas Measurements Intervals [place] Rate: 82 P: 16 RI: 146 QRS: -31 QRSD: 93 T: 7 QT: 351 QTc: 389 Interpretive Statements SINUS RHYTHM MARKED LEFT AXIS DEVIATION SEPTAL MYOCARDIAL INFARCTION Electronically Signed On 04-17-2017 15:35:17 EDT by Isaac Alas
[2017-04-17] MEDS ORDERED: Fluticasone Propionate Nasal 50 MCG/SPRAY BOTTLE NS SCH (21:00)
== END 2017-04-17 14:26 | DRG 310 ==
LOC: EMEROO 19:20 → SUATTDRO 22:07 → 3BNU 22:07
PROVIDERS: ADMIT Hospitalist; ATTEND Internal Medicine